=== PATIENT | female | born 1985 | race American Indian/Alaskan Native ===

== ENCOUNTER 2021-06-16 12:09 | Emergency (ER) | payer MEDICAID ==
[2021-06-16 14:29] VITALS: BP 148/87
--- NOTE | 2021-06-16 16:41 | XRay Report ---
Right hand 3 views INDICATION: Fifth metacarpal pain FINDINGS: Swelling overlying the dorsal aspect of the hand. MCP joints and IP joints appear normal. N o acute fracture. Signer Name: Jeff Molina MD Signed: 06/16/2021 4:36 PM Workstation Name: [id number]
--- NOTE | 2021-06-16 16:45 | Emergency Department Report ---
ED Upper Extremity Inj HPI - General Chief Complaint: Extremity Injury, Upper Stated Complaint: RIGHT HAND INJURY Time Seen by Provider: 06/16/21 15:35 Source: patient Mode of arrival: Ambulatory Limitations: No Limitations - History of Present Illness Initial Comments: Patient is a 35-year-old female presents emergency room complaints of a right hand injury that occurred yesterday. She states that she was playing around with her when she accidentally hit his jaw with her right hand. She states that they were not fighting each other and this was accidental. She denies any concerns for domestic violence and states that this was just a playful event. She states since then she has had some right hand pain and swelling. She is right-hand dominant. She denies ever injuring the hand in the past. She denies any numbness or weakness. PMHx DM. Allergy to ceftriaxone. - Related Data Previous Rx's Medication Instructions Recorded Last Taken Type Naproxen [EC-Naprosyn] 500 mg PO BID PRN #20 tablet. 06/16/21 Unknown Rx Allergies Allergy/AdvReac Type Severity Reaction Status Date / Time ceftriaxone [From Rocephin] Allergy Anaphylaxis Verified 06/16/21 14:26 ED Review of Systems ROS: Stated complaint: RIGHT HAND INJURY Other details as noted in HPI Comment: All other systems reviewed and negative ED Past Medical Hx - Past Medical History Previous Medical History?: Yes Hx Diabetes: Yes - Medications Home Medications: Home Medications Medication Instructions Recorded Confirmed Last Taken Type Naproxen [EC-Naprosyn] 500 mg PO BID PRN #20 tablet. 06/16/21 Unknown Rx ED Physical Exam - General Limitations: No Limitations General appearance: alert, in no apparent distress - Head Head exam: Present: atraumatic, normocephalic - Eye Eye exam: Present: normal appearance - ENT ENT exam: Present: mucous membranes moist - Extremities Exam Extremities exam: Present: other (ttp and mild edema to the right 5th metacarpal region, FROM of the RUE, no deformity, neurovascularly intact) - Neurological Exam Neurological exam: Present: alert, oriented X3 - Psychiatric Psychiatric exam: Present: normal affect, normal mood - Skin Skin exam: Present: warm, dry, intact ED Course Vital Signs 06/16/21 14:26 Temperature 98 F Pulse Rate 75 Respiratory 16 Rate Blood Pressure 148/87 [Right] O2 Sat by Pulse 98 Oximetry ED Medical Decision Making - Radiology Data Radiology results: report reviewed Ordering Physician: HUNTER CARTER Date of Service: 06/16/21 Procedure(s): XR hand 3+V RT Accession Number(s): [id number] cc: HUNTER CARTER Fluoro Time In Minutes: Right hand 3 views INDICATION: Fifth metacarpal pain FINDINGS: Swelling overlying the dorsal aspect of the hand. MCP joints and IP joints appear normal. No acute fracture. Signer Name: Jeff Molina MD Signed: 06/16/2021 4:36 PM Workstation Name: [id number] Transcribed By: DONAL Dictated By: RAVINDER MOLINA MD Electronically Authenticated By: RAVINDER MOLINA MD Signed Date/Time: 06/16/211635 DD/ 35 TD/TT: Print - Medical Decision Making Patient is a 35-year-old female presents emergency room complaints of a right hand injury that occurred yesterday. She states that she was playing around with her when she accidentally hit his jaw with her right hand. She states that they were not fighting each other and this was accidental. She denies any concerns for domestic violence and states that this was just a playful event. She states since then she has had some right hand pain and swelling. She is right-hand dominant. She denies ever injuring the hand in the past. She denies any numbness or weakness. PMHx DM. Allergy to ceftriaxone. Vitals are stable. On exam:ttp and mild edema to the right 5th metacarpal region, FROM of the RUE, no deformity, neurovascularly intact. X-ray right hand: FINDINGS: Swelling overlying the dorsal aspect of the hand. MCP joints and IP joints appear normal.No acute fracture. Patient placed in Velcro boxer splint. Advised patient Please take medication as prescribed. Follow-up with orthopedic doctor. Return to emergency room for any new or symptoms. Critical care attestation.: If time is entered above; I have spent that time in minutes in the direct care of this critically ill patient, excluding procedure time. ED Disposition Clinical Impression: Injury of right hand Qualifiers: Encounter type: initial encounter Qualified Code(s): S69.91XA - Unspecified injury of right wrist, hand and finger(s), initial encounter Disposition: DC- TO HOME OR SELFCARE Is pt being admited?: No Does the pt Need Aspirin: No Condition: Stable Additional Instructions: Please take medication as prescribed. Follow-up with orthopedic doctor. Return to emergency room for any new or symptoms. Prescriptions: Naproxen [EC-Naprosyn] 500 mg PO BID PRN #20 tablet. PRN Reason: pain Referrals: HI LOPEZ [Other] - 3-5 Days VENANCIO MUNOZ MD [Staff Physician] - 3-5 Days Time of Disposition: 16:44 Print Language: ALBANIAN
== END 2021-06-16 17:40 | disposition home or self-care (01) ==
LOC: ED 12:09
DX: S69.91XA Unspecified injury of right wrist, hand and finger(s), initial encounter (principal); E11.9 Type 2 diabetes mellitus without complications; Z88.8 Allergy status to other drugs, medicaments and biological substances; Z79.899 Other long term (current) drug therapy; X58.XXXA Exposure to other specified factors, initial encounter; Y93.89 Activity, other specified; Y92.89 Other specified places as the place of occurrence of the external cause; Y99.8 Other external cause status

== ENCOUNTER 2022-08-20 15:04 | Emergency (ER) | payer MEDICAID | END 2022-08-21 15:35 | disposition left against medical advice (07) | LOC: ED 15:04 | DX: R21 Rash and other nonspecific skin eruption (principal); Z53.21 Procedure and treatment not carried out due to patient leaving prior to being seen by health care provider ==